=== PATIENT | female | born 1970 | race African-American/Black ===

== ENCOUNTER 2017-10-15 07:49 | Emergency (ER) | payer OTHER, MEDICAID ==
[~2017-10-15] VITALS: Ht 165.1 cm; Wt 59.0 kg
[2017-10-15 07:56] VITALS: BP 107/68
== END 2017-10-15 09:42 | disposition home or self-care (01) ==
LOC: ER 07:49
DX: M25.562 Pain in left knee (principal)
CPT/HCPCS: 29505; 73564